=== PATIENT | female | born 1940 | race Caucasian/White ===

== ENCOUNTER 2022-07-04 21:19 | Inpatient (IN) | payer MEDICARE ==
[~2022-07-04] VITALS: Ht 154.9 cm; Wt 53.6 kg
[2022-07-04] MEDS ORDERED: ONDANSETRON HCL/PF 4 MG/2 ML VIAL IVP ONE (21:30)
[2022-07-04] MEDS ORDERED: IV NS 0.9% 1,000 ML BAG IV ONE (21:30)
--- NOTE | 2022-07-04 21:35 | NUR ---
[id number]. NAUSEA, VOMITING X 8 EPISODE & DIARRHEA. DX OF BOWEL OBSTRUCTION THURS 06/28/22. PATIENT IS AAOX4. ABLE TO MAKE NEEDS KNOWN. PER PATIENT, HE WAS INSTRUCTED TO TAKE LIQUID DIET ONLY BUT TODAY SHE TOOK SOME SOLID FOODS. THEN PAIN TRIGGERED. PATIENT -COB,-CP, NOT IN CP DISTRESS. PLACED COMFORTABLY IN BED. VITALS CHECKED.
--- NOTE | 2022-07-04 21:45 | NUR ---
COVID SWAB DONE AND SENT TO LAB
--- NOTE | 2022-07-04 21:45 | NUR ---
BLOOD COLLECTED AND SENT TO LAB
[2022-07-04] MEDS ORDERED: ONDANSETRON HCL/PF 4 MG/2 ML VIAL ONE (22:08)
[2022-07-04 22:25] LABS: BASOPHILS % (AUTO) 0.1 % (0.0-2.0); EOSINOPHILS % (AUTO) 0.1 % (0.0-6.0); HEMATOCRIT 40 % (33-45); HEMOGLOBIN 13.2 g/dL (11.5-14.8); LYMPHOCYTES # (AUTO) 0.4 K/uL (0.8-4.8); LYMPHOCYTES % (AUTO) 4.7 % (20.0-44.0); MEAN CORPUSCULAR HGB CONC 33 g/dl (31.0-36.0); MEAN CORPUSCULAR VOLUME 87 fL (82-100); MONOCYTES # (AUTO) 0.8 K/uL (0.1-1.30); MONOCYTES % (AUTO) 10.5 % (2.0-12.0); NEUTROPHILS # (AUTO) 6.5 K/uL (1.8-8.9); NEUTROPHILS % (AUTO) 84.6 % (43.0-81.0); PLATELET COUNT (AUTO) 274 K/uL (150-450); WHITE BLOOD COUNT (AUTO) 7.7 K/uL (4.3-11.0)
--- NOTE | 2022-07-04 22:27 | NUR ---
CAME BACK FROM CT DEPT
--- NOTE | 2022-07-04 22:34 | NUR ---
velma mcqueen son [phone]
[2022-07-04 22:35] LABS: ALANINE AMINOTRANSFERASE 9 U/L (12-78); ALBUMIN 3.5 g/dL (3.4-5.0); ALKALINE PHOSPHATASE 74 U/L (46-116); ASPARTATE AMINOTRANSFERASE 22 U/L (15-37); BILIRUBIN,DIRECT 0.2 mg/dL (0.0-0.2); BILIRUBIN,TOTAL 0.7 mg/dL (0.2-1.0); CALCIUM, SERUM 9.1 mg/dL (8.5-10.1); CARBON DIOXIDE 24 mmol/L (21-32); CHLORIDE 97 mmol/L (98-107); CREATININE 0.7 mg/dL (0.6-1.3); GLUCOSE 144 mg/dL (74-106); LIPASE 52 U/L (73-393); TOTAL PROTEIN, SERUM 7.6 g/dL (6.4-8.2); UREA NITROGEN, BLOOD 16 mg/dL (7-18)
[2022-07-04 22:42] LABS: SODIUM SERUM 134 mmol/L (136-145)
--- NOTE | 2022-07-04 22:47 | NUR ---
K 2.5, AWARE
[2022-07-04 22:48] LABS: POTASSIUM 2.5 mmol/L (3.5-5.1)
[2022-07-04] MEDS ORDERED: NA PHOS,M-B/NA PHOS,DI-BA 1 EA ENEMA RC ONE (23:30)
[2022-07-04] MEDS ORDERED: ONDANSETRON HCL/PF 4 MG/2 ML VIAL IVP PRN (23:30)
[2022-07-04] MEDS ORDERED: MAGNESIUM HYDROXIDE 30 ML UDC PO PRN (23:30)
[2022-07-04] MEDS ORDERED: Z GUARD REMEDY 4 OZ OINT TP PRN (23:30)
[2022-07-04] MEDS ORDERED: LACTULOSE 10 G/15 ML UDC (PYXIS) PO ONE (23:30)
[2022-07-04] MEDS ORDERED: POTASSIUM CHLORIDE 20 MEQ TAB.PRT.SR PO ONE (23:30)
[2022-07-04] MEDS ORDERED: MAG HYDROX/AL HYDROX/SIMETH 30 ML UDC PO PRN (23:30)
[2022-07-04] MEDS ORDERED: ZOLPIDEM TARTRATE 5 MG TABLET PO PRN (23:30)
--- NOTE | 2022-07-04 23:30 | NUR ---
1st BAG OF KCL 10meq/50ml started.
[2022-07-05] MEDS: POTASSIUM CL. PREMIX PERIPHER. 50 ML IV SCH ×4 (00:02→03:42)
--- NOTE | 2022-07-05 00:30 | NUR ---
2nd BAG OF KCL 10meq/50ml started.
--- NOTE | 2022-07-05 01:30 | NUR ---
3rd BAG OF KCL 10meq/50ml started.
--- NOTE | 2022-07-05 02:30 | NUR ---
4th BAG OF KCL 10meq/50ml started.
[2022-07-05] MEDS ORDERED: TEMAZEPAM 15 MG CAPSULE PO ONE (03:00)
--- NOTE | 2022-07-05 03:18 | NUR ---
room 326-2
--- NOTE | 2022-07-05 03:34 | NUR ---
REPORT GIVEN TO KINGS DIOP.
--- NOTE | 2022-07-05 03:45 | NUR ---
MS RN OPENING NOTE PT TRANSPORTED TO UNIT VIA GURNEY AT THIS TIME. PT ADMITTED TO MS FROM ER UNDER [facility] LAB TECHNICIAN [facility] FOR ADMITTING DX HYPOKALEMIA AND ILEUS. A/O X 4 AND ABLE TO MAKE NEEDS KNOWN. PT STABLE ON ROOM AIR. NO SOB OR S/S OF RESPIRATORY DISTRESS. BREATHING EVEN AND UNLABORED. IV ACCESS LAC 18G, INTACT AND PATENT. NOTED WITH PERIANAL REDNESS, WOUND CONSULT ORDERED. PT BELONGINGS ACCOUNTED FOR AND BELONGINGS LIST SIGNED. ORIENTED TO UNIT, STAFF, AND ROOM. BED BATH GIVEN AT THIS TIME. COMPLAINT OF HEADACHE 07/13, ADMINISTERED TYLENOL 650 MG FOR MILD PAIN ORDERED. POTASSIUM 2.8, 80 MEQ GIVEN IN ER, F/U LABS IN AM. SAFETY PRECAUTIONS IN PLACE. BED IN LOWEST LOCKED POSITION, HOB ELEVATED, SIDE RAILS UP X2, AND CALL LIGHT AND TABLE WITHIN REACH. ALL NEEDS MET AT THIS TIME.
--- NOTE | 2022-07-05 03:55 | NUR ---
TRANSFERRED TO ROOM
[2022-07-05 04:00] VITALS: BP 152/67
[2022-07-05] MEDS: IV NS 0.9% 1,000 ML IV PRN ×2 (04:05→21:25)
[2022-07-05] MEDS: METOCLOPRAMIDE HCL 10 MG/2 ML VIAL IV SCH ×3 (04:10→21:05)
[2022-07-05] MEDS: ACETAMINOPHEN 325 MG TABLET PO PRN ×2 (04:10→21:22)
[2022-07-05 04:47] VITALS: BP 152/67
--- NOTE | 2022-07-05 05:00 | NUR ---
RN NOTE PT REFUSED FLEET ENEMA. STATED "I HAVE NONSTOP DIARRHEA, I DON'T WANT THAT. I JUST WANT TO SLEEP". INFORMED [employer] KEH WITH ORDER TO DC ORDER. NOTED AND CARRIED OUT.
--- NOTE | 2022-07-05 06:49 | NUR ---
MS RN CLOSING NOTE PT RESTING IN BED, VERBALLY RESPONSIVE. A/O X 4 AND ABLE TO MAKE NEEDS KNOWN. PT STABLE ON ROOM AIR. NO SOB OR S/S OF RESPIRATORY DISTRESS. BREATHING EVEN AND UNLABORED. IV ACCESS LAC 18G, INTACT AND PATENT, RUNNING NS @ 75 ML/HR. NO COMPLAINTS OF PAIN OR DISCOMFORT AT THIS TIME. ALL DUE MEDS GIVEN ORDERED. KEPT CLEAN AND DRY. SAFETY PRECAUTIONS IN PLACE AT ALL TIMES. BED IN LOWEST LOCKED POSITION, HOB ELEVATED, SIDE RAILS UP X2, AND CALL LIGHT AND TABLE WITHIN REACH. ALL NEEDS MET AT THIS TIME AND WILL ENDORSE TO ONCOMING NURSE FOR NILDA.
--- NOTE | 2022-07-05 07:10 | NUR ---
ms rn received on bed, awake,alert,oriented x4, not in any form of distress,respirations even and unlabored,no sob noted, lungs are clear, abdomen soft,denies pain at this time, all needs attended.
[2022-07-05 07:18] LABS: CALCIUM, SERUM 7.6 mg/dL (8.5-10.1); CREATININE 0.8 mg/dL (0.6-1.3); MAGNESIUM 1.7 mg/dL (1.8-2.4); PHOSPHORUS 3.4 mg/dL (2.5-4.9)
[2022-07-05 07:29] LABS: RED BLOOD CELL COUNT(AUTO) 4.13 MIL/uL (4.0-5.2)
[2022-07-05 07:36] LABS: BASOPHILS % (AUTO) 0.1 % (0.0-2.0); EOSINOPHILS % (AUTO) 0.5 % (0.0-6.0); HEMATOCRIT 37 % (33-45); LYMPHOCYTES # (AUTO) 0.4 K/uL (0.8-4.8); LYMPHOCYTES % (AUTO) 9.4 % (20.0-44.0); MEAN CORPUSCULAR HGB CONC 33 g/dl (31.0-36.0); MEAN CORPUSCULAR VOLUME 90 fL (82-100); MONOCYTES # (AUTO) 0.9 K/uL (0.1-1.30); MONOCYTES % (AUTO) 22.6 % (2.0-12.0); NEUTROPHILS # (AUTO) 2.7 K/uL (1.8-8.9); NEUTROPHILS % (AUTO) 67.4 % (43.0-81.0); PLATELET COUNT (AUTO) 241 K/uL (150-450)
[2022-07-05 07:37] LABS: POTASSIUM 2.6 mmol/L (3.5-5.1)
--- NOTE | 2022-07-05 08:10 | NUR ---
ms ashely called [facility] for critical potassium result, w/ orders made and carried out.
[2022-07-05 08:15] VITALS: BP 112/56
[2022-07-05] MEDS ORDERED: CITA10TA9 PO (08:34)
[2022-07-05] MEDS ORDERED: LISI40TA13 PO (08:34)
[2022-07-05] MEDS ORDERED: AMLO2.5T4 PO (08:34)
[2022-07-05] MEDS ORDERED: PRAV40TA3 PO (08:34)
[2022-07-05] MEDS ORDERED: BIMA2.5D5 EACHEYE (08:34)
[2022-07-05] MEDS ORDERED: CARB-131 PO (08:34)
[2022-07-05] MEDS ORDERED: ALEN70TA80 PO (08:34)
[2022-07-05] MEDS ORDERED: HYDR12.55 PO (08:34)
[2022-07-05] MEDS ORDERED: POTASSIUM CHLORIDE 20 MEQ POWDER PACKET PO ONE (10:00)
--- NOTE | 2022-07-05 12:07 | NUR ---
SS Note: SW received consult for Advanced Directive. The pt. is an 82 year old female who was admitted to [facility] due to Intractable abdominal pain. The pt. is alert & oriented x 4 and makes good eye contact. The pt. is well-groomed with euthymic mood & affect. The pt. speech & thought process are WNL. The pt. denies SI/HI and denies hallucinations. Pt. states she is feeling better. SW spoke with pt. about Advanced Healthcare Directive. The pt. states that she has already initiated a living will. Pt. stated she is open to receiving more information about advanced directives. SW provided pt. with additional education material on advanced directive and mobile public notary contact. Pt. accepted information and states she will read it over with her children. Per pt. her son, Norm Barba tel: [phone] will be visiting today. Noted. SW will be available as needed.
[2022-07-05] MEDS: Magnesium 1GM/D5W 100ML PREMIX 100 ML IV SCH ×2 (12:12→13:31)
[2022-07-05] MEDS ORDERED: POTASSIUM CHLORIDE 20 MEQ POWDER PACKET PO SCH (14:00)
--- NOTE | 2022-07-05 16:00 | NUR ---
ms rn on bed, no distress noted,still on clear liquids, will monitor for tolerance.
[2022-07-05 16:26] VITALS: BP 100/48
[2022-07-05 18:02] LABS: BAND % (MANUAL) 13 % (0.0-5.0); LYMPHOCYTES % (MANUAL) 22 % (16-48); MONOCYTES % (MANUAL) 13 % (0-11.0); NEUTROPHILS % (MANUAL) 52 (42-76)
--- NOTE | 2022-07-05 19:40 | NUR ---
MS RN OPENING NOTE RECEIVED PATIENT IN BED; AWAKE, ALERT AND ORIENTED X 4. ON ROOM AIR; TOLERATING WELL. BREATHING EVEN AND NONLABORED. NOT IN ANY FORM OF RESPIRATORY OR CARDIAC DISTRESS NOTED. DENIES ANY PAIN OR DISCOMFORT AT THIS TIME. WITH IV ACCESS ON LEFT AC 18g; PATENT AND INTACT INFUSING WITH NS 1L RUNNING @ 75 ML/HR; FLUSHES WELL. ABLE TO MAKE NEEDS KNOWN. SAFETY PRECAUTIONS IMPLEMENTED: CALL LIGHT AND TABLE WITHIN REACH, SIDE RAILS UP X 2, BED IN LOWEST LOCKED POSITION. WILL CONTINUE PLAN OF CARE.
[2022-07-05 20:00] VITALS: BP 118/63
[2022-07-05 20:37] VITALS: BP 118/63
--- NOTE | 2022-07-05 21:22 | NUR ---
RN NOTE PATIENT COMPLAINED OF HEADACHE. PRN TYLENOL 650 MG GIVEN PO ORDERED. KEPT COMFORTABLE IN BED. WILL CONTINUE TO MONITOR.
[2022-07-06] MEDS: METOCLOPRAMIDE HCL 10 MG/2 ML VIAL IV SCH ×3 (05:18→21:24)
--- NOTE | 2022-07-06 06:53 | NUR ---
MS RN CLOSING NOTE PATIENT IN BED; AWAKE, A/O X 4. STABLE ON ROOM AIR. BREATHING EQUAL AND UNLABORED. IN NO ACUTE DISTRESS. NO C/O ANY PAIN OR DISCOMFORT AT THIS TIME. WITH IV ACCESS ON LEFT AC 18g; INTACT AND PATENT INFUSING WITH NS 1L RUNNING @ 75 ML/HR. ALL DUE MEDS GIVEN ORDERED. SAFETY PRECAUTIONS MAINTAINED: CALL LIGHT AND TABLE WITHIN REACH, SIDE RAILS UP X 2, BED IN LOWEST LOCKED POSITION. ENDORSED TO MORNING SHIFT FOR NILDA.
--- NOTE | 2022-07-06 07:23 | NUR ---
RN OPENING NOTE RECEIVED PATIENT IN BED, AWAKE, A/O X4, VERBALLY RESPONSIVE AND ABLE TO MAKE NEEDS KNOWN. NO SIGNS OF ACUTE DISTRESS NOTED. STABLE ON ROOM AIR. NOTED WITH IV ACCESS ON LEFT ANTECUBITAL #20G, INTACT AND PATENT WITH NS @75ML/HR INFUSING WELL. NO C/O PAIN OR DISCOMFORT AT THIS TIME. SAFETY MEASURE IN PLACE. BED IN LOW AND LOCKED POSITION, SIDE RAILS UP X2, CALL LIGHT PLACED WITHIN EASY REACH. WILL CONTINUE TO MONITOR PATIENT.
[2022-07-06 08:22] VITALS: BP 116/66
[2022-07-06 09:02] LABS: CALCIUM, SERUM 7.3 mg/dL (8.5-10.1); CARBON DIOXIDE 17 mmol/L (21-32); CHLORIDE 111 mmol/L (98-107); CREATININE 0.6 mg/dL (0.6-1.3); GLUCOSE 125 mg/dL (74-106); SODIUM SERUM 140 mmol/L (136-145); UREA NITROGEN, BLOOD 6 mg/dL (7-18)
[2022-07-06 09:19] LABS: POTASSIUM 2.3 mmol/L (3.5-5.1)
--- NOTE | 2022-07-06 09:40 | NUR ---
RN NOTE RECEIVED CALL FROM LAB RE: POTASSIUM RESULT 2.3, CALLED EPIC TO PAGE DR. THORNE, AWAITING CALL BACK.
--- NOTE | 2022-07-06 10:25 | NUR ---
RN NOTE SPOKE WITH DR. THORNE, RELAYED POTASSIUM LEVEL RESULT OF 2.3, WITH NEW ORDER, NOTED AND CARRIED OUT.
[2022-07-06] MEDS ORDERED: POTASSIUM CHLORIDE 20 MEQ POWDER PACKET GT ONE (10:30)
[2022-07-06] MEDS: IV NS 0.9% 1,000 ML IV PRN (11:09)
--- NOTE | 2022-07-06 11:26 | NUR ---
WOUND CARE CONSULT: PT HAVING SMALL AMOUNT OF LIQUID STOOL. PERIANAL AREA REDNESS/RASH NOTED. RECOMMENDATIONS MADE FOR SKIN PROTECTION. DISCUSSED WITH NURSING STAFF. MD IN AGREEMENT WITH PLAN OF CARE.
[2022-07-06] MEDS: Magnesium 1GM/D5W 100ML PREMIX 100 ML IV SCH ×4 (11:51→15:36)
[2022-07-06] MEDS: CLOTRIMAZOLE 1% 15 GM TUBE TP SCH (16:19)
[2022-07-06 16:50] VITALS: BP 124/71
[2022-07-06] MEDS: Potassium Chloride 20 MEQ in IV NS 0.9% 1,000 ML IV SCH (17:32)
--- NOTE | 2022-07-06 18:53 | NUR ---
RN CLOSING NOTE PATIENT IN BED, AWAKE, A/O X4, VERBALLY RESPONSIVE AND ABLE TO MAKE NEEDS KNOWN. NO SIGNS OF ACUTE DISTRESS NOTED. REMAINS STABLE ON ROOM AIR. IV ACCESS ON LEFT ANTECUBITAL #20G, INTACT AND PATENT WITH NS @75ML/HR INFUSING WELL. NO C/O PAIN OR DISCOMFORT AT THIS TIME. ABLE TO TOLERATE DIET, ADVANCE TO SOFT DIET. SAFETY MEASURE IN PLACE. BED IN LOW AND LOCKED POSITION, SIDE RAILS UP X2, CALL LIGHT PLACED WITHIN EASY REACH. WILL ENDORSE TO NEXT SHIFT FOR CONTINUITY OF CARE.
--- NOTE | 2022-07-06 19:25 | NUR ---
MSRN FULLY AWAKE, NO NEEDS FOR NOW. PLAN OF CARE AND MEDICATION REGIMEN DISCUSSED WITH PATIENT, WELL UNDERSTOOD. SAFETY PRECAUTIONS EMPHASIZED REMINDED TO CALL STAFF FOR ANY ASSISTANCE OR DISCOMFORTS. PRESENT IVF WITH KCL INFUSING WELL.
[2022-07-06 20:00] VITALS: BP 116/64
[2022-07-06] MEDS: ACETAMINOPHEN 325 MG TABLET PO PRN (21:29)
--- NOTE | 2022-07-06 22:15 | NUR ---
MSRN DUE MEDS ADMINISTERED. ALL NEEDS ATTENDED, VERY PLEASANT. IVF CONTINUED
[2022-07-07] MEDS: METOCLOPRAMIDE HCL 10 MG/2 ML VIAL IV SCH (05:34)
[2022-07-07] MEDS: Potassium Chloride 20 MEQ in IV NS 0.9% 1,000 ML IV SCH (06:00)
--- NOTE | 2022-07-07 06:33 | NUR ---
MSRN DENIES ANY DISCOMFORTS, NO BM SINCE LAST NIGHT. EAGER TO GO HOME. LABS MONITORED. K LEVEL PENDING
--- NOTE | 2022-07-07 07:10 | NUR ---
RN OPENING NOTE RECEIVED PATIENT IN BED, AWAKE, A/O X4, VERBALLY RESPONSIVE AND ABLE TO MAKE NEEDS KNOWN. NO SIGNS OF ACUTE DISTRESS NOTED. STABLE ON ROOM AIR. IV ACCESS ON LEFT AC, FLUSHES WELL, INTACT AND PATENT WITH NS @75ML/HR INFUSING WELL. NO C/O PAIN OR DISCOMFORT AT THIS TIME. SAFETY MEASURE IN PLACE. BED IN LOW AND LOCKED POSITION, SIDE RAILS UP X2, CALL LIGHT PLACED WITHIN EASY REACH. PLAN FOR POSSIBLE DISCHARGE, WILL CONTINUE TO MONITOR PATIENT.
[2022-07-07 08:00] VITALS: BP 141/70
[2022-07-07] MEDS: CLOTRIMAZOLE 1% 15 GM TUBE TP SCH (08:26)
[2022-07-07 08:39] LABS: CALCIUM, SERUM 7.3 mg/dL (8.5-10.1); CREATININE 0.6 mg/dL (0.6-1.3)
[2022-07-07] MEDS ORDERED: POTASSIUM CHLORIDE 20 MEQ TAB.PRT.SR PO ONE (09:00)
[2022-07-07] MEDS ORDERED: SENN-18 PO (09:01)
[2022-07-07] MEDS ORDERED: DOCU-141 PO (09:01)
--- NOTE | 2022-07-07 11:31 | NUR ---
PATIENT DISCHARGED IN A STABLE CONDITION. ACCOMPANIED BY SON, TAKEN HOME BY PRIVATE CAR. DISCHARGE INSTRUCTION PROVIDED, EDUCATION MATERIALS GIVEN, PT VERBALIZED UNDERSTANDING.
== END 2022-07-07 11:40 | disposition home or self-care (01) | DRG 390 ==
LOC: ER 21:22 → MED 07-05 03:32
PROVIDERS: ADMIT Nurse Practitioner Acute Care; ATTEND Internal Medicine
DX: K56.7 Ileus, unspecified (principal); E87.6 Hypokalemia; K21.9 Gastro-esophageal reflux disease without esophagitis; M19.90 Unspecified osteoarthritis, unspecified site; I10 Essential (primary) hypertension; M81.0 Age-related osteoporosis without current pathological fracture; E78.5 Hyperlipidemia, unspecified; Z90.49 Acquired absence of other specified parts of digestive tract; Z87.19 Personal history of other diseases of the digestive system; F32.A Depression, unspecified; H40.9 Unspecified glaucoma; K46.9 Unspecified abdominal hernia without obstruction or gangrene; E83.42 Hypomagnesemia; G83.9 Paralytic syndrome, unspecified; R19.7 Diarrhea, unspecified; Z20.822 Contact with and (suspected) exposure to COVID-19
CPT/HCPCS: 36415; 80048-TC; 80076-TC; 82962-TC; 83690-TC; 83735-TC; 84100-TC; 85025-TC; 85730-TC; 87081-TC; C9803; G0378; J2405; J2765; J3475; J3480; J7030